=== PATIENT | female | born 1950 | race Caucasian/White ===

== ENCOUNTER 2016-11-16 19:28 | Emergency (ER) | payer MEDICARE, SELFPAY | END 2016-11-16 20:10 | disposition home or self-care (01) | LOC: ER 19:28 | DX: J06.9 Acute upper respiratory infection, unspecified (principal); J32.9 Chronic sinusitis, unspecified; R50.9 Fever, unspecified; R05 Cough; Z79.899 Other long term (current) drug therapy; Z88.5 Allergy status to narcotic agent | CPT/HCPCS: 99282; 99283 ==

== ENCOUNTER 2016-11-22 19:04 | Emergency (ER) | payer OTHER, SELFPAY | END 2016-11-22 20:13 | disposition home or self-care (01) | LOC: ER 19:04 | DX: L03.114 Cellulitis of left upper limb (principal); I10 Essential (primary) hypertension; E11.9 Type 2 diabetes mellitus without complications; Z95.5 Presence of coronary angioplasty implant and graft; Z90.710 Acquired absence of both cervix and uterus; Z88.5 Allergy status to narcotic agent; Z79.82 Long term (current) use of aspirin; Z79.899 Other long term (current) drug therapy | CPT/HCPCS: 96372; 99070; 99282-25; 99283 ==

== ENCOUNTER 2017-01-27 08:41 | Emergency (ER) | payer OTHER ==
[2017-01-27 09:13] LABS: BASO # 0.1 10_X3_uL (0.0-0.1); BASO % 0.7 % (0.1-1.2); EOS # 0.6 10_X3_uL (0.0-0.4); EOS % 7.2 % (0.7-5.8); GRAN # 4.4 10_X3_uL (1.6-6.1); GRAN % 57.8 % (34.0-71.1); HEMATOCRIT 35.7 % (34-45); HEMOGLOBIN 11.9 g/dL (11.2-15.7); LYMPH % 26.1 % (19.3-51.7); MEAN CORPUSCULAR HEMOGLOBIN 30.4 pg (27.0-33.0); MEAN CORPUSCULAR HGB CONC 33.3 g/dL (32.0-36.0); MEAN CORPUSCULAR VOLUME 91.1 fL (79-95); MEAN PLATELET VOLUME 11.8 fl (7.5-11.5); MONO # 0.6 10_X3_uL (0.2-0.9); MONO % 8.2 % (4.7-12.5); PLATELET COUNT 121 x10_3/uL (182-369); RED BLOOD COUNT 3.92 x10_6/uL (3.9-5.2); RED CELL DISTRIBUTION WIDTH 13.4 % (11.7-14.4); WHITE BLOOD COUNT 7.7 x10_3/uL (4.0-10.0)
[2017-01-27 09:29] LABS: ALKALINE PHOSPHATASE 109 U/L (50-136); ALT/SGPT 105 U/L (3.5-33.9); AST/SGOT 80 U/L (7.04-26.96); BILIRUBIN,TOTAL 0.64 mg/dL (0.0-1.0); BLOOD UREA NITROGEN 10 mg/dL (7-18); CALCIUM 9.4 mg/dL (8.7-10.7); CARBON DIOXIDE 27 mmol/L (21-32); CREATINE KINASE 172 U/L (21-215); CREATININE 0.6 mg/dL (0.6-1.3); GLUCOSE,RANDOM 262 mg/dL (70-99); POTASSIUM 4.1 mmol/L (3.5-5.1); SODIUM 137 mmol/L (136-145); TOTAL PROTEIN 7.9 gm/dL (6.4-8.2)
== END 2017-01-27 10:26 | disposition home or self-care (01) ==
LOC: ER 08:41
PROVIDERS: General Practice
DX: I20.9 Angina pectoris, unspecified (principal); R74.8 Abnormal levels of other serum enzymes; I25.2 Old myocardial infarction; J84.9 Interstitial pulmonary disease, unspecified; G89.29 Other chronic pain; M54.9 Dorsalgia, unspecified; I10 Essential (primary) hypertension; Z95.1 Presence of aortocoronary bypass graft; Z95.5 Presence of coronary angioplasty implant and graft; M79.601 Pain in right arm; M79.602 Pain in left arm; M79.604 Pain in right leg; M79.605 Pain in left leg; Z79.82 Long term (current) use of aspirin; Z79.899 Other long term (current) drug therapy; Z88.5 Allergy status to narcotic agent
CPT/HCPCS: 36415; 71010; 80053; 82550; 82553; 85025; 93005; 99284; 99285-25

== ENCOUNTER 2017-03-11 20:06 | Emergency (ER) | payer OTHER | END 2017-03-11 23:10 | disposition home or self-care (01) | LOC: ER 20:06 | DX: M25.561 Pain in right knee (principal); E11.9 Type 2 diabetes mellitus without complications; I10 Essential (primary) hypertension; J44.9 Chronic obstructive pulmonary disease, unspecified; Z95.1 Presence of aortocoronary bypass graft; Z98.890 Other specified postprocedural states | CPT/HCPCS: 73564; 96372; 99070; 99283; 99283-25 ==